=== PATIENT | male | born 1975 | race Caucasian/White ===

== ENCOUNTER 2021-10-09 05:32 | Outpatient (CLI) | payer BC ==
[~2021-10-09] VITALS: Ht 190.5 cm; Wt 114.5 kg
[2021-10-09] MEDS ORDERED: CITA40TA13 PO (12:57)
[2021-10-11] MEDS ORDERED: HYDR-3817 PO (09:14)
== END 2021-10-09 13:02 ==
LOC: PREOP 05:32
PROVIDERS: ATTEND Surgery
DX: Z01.818 Encounter for other preprocedural examination (principal)